=== PATIENT | female | born 1995 | race Caucasian/White ===

== ENCOUNTER 2020-08-15 14:53 | Outpatient (REF) | payer OTHER, SELFPAY | END 2020-08-15 14:54 | disposition home or self-care (01) | LOC: HO.LAB 14:53 | PROVIDERS: Visit Provider Internal Medicine | DX: Z20.828 Contact with and (suspected) exposure to other viral communicable diseases (principal) | CPT/HCPCS: C9803; U0003 ==

== ENCOUNTER 2022-03-24 13:28 | Emergency (ER) | payer OTHER, SELFPAY ==
[2022-03-24 13:51] VITALS: BP 138/100; PULSE 121; RESP 20; TEMP 36.9; O2SAT 97; BMI 21.2
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
[2022-03-24] MEDS: Diphth,Pertus(ACell),Tet Adult 0.5 ML SYRINGE IM (14:23)
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
== END 2022-03-24 14:30 | disposition home or self-care (01) ==
PROVIDERS: Emergency Provider Emergency Medicine
DX: S10.91XA Abrasion of unspecified part of neck, initial encounter (principal); V43.52XA Car driver injured in collision with other type car in traffic accident, initial encounter; Y93.9 Activity, unspecified; Y92.410 Unspecified street and highway as the place of occurrence of the external cause; Y99.9 Unspecified external cause status
CPT/HCPCS: 90471; 90715; 99283